=== PATIENT | female | born 1950 | race Caucasian/White ===

== ENCOUNTER 2020-12-05 05:34 | Emergency (ER) | payer OTHER, SELFPAY ==
[2020-12-05] VITALS (20 sets, daily range): BP systolic 145–186; BP diastolic 74–97; PULSE 70–83; RESP 11–20; TEMP 36.6; O2SAT 94–100
--- NOTE | ~2020-12-05 | CT_ITS ---
EXAMINATION: CTA brain carotid EXAM DATE: 12/05/2020 07:50 INDICATION: Headache/ Dizziness s/p neck manipulation. TECHNIQUE: Noncontrast head CT. Spiral CTA of the carotid arteries was performed with intravenous i njection 100 cc of Omnipaque 350. Axial, coronal, sagittal reformatted images reviewed. Additional r eformatted images created on dedicated 3-D workstation. NASCET comparable standard used to assess th e degree of arterial stenosis. Spiral CT angiogram cerebral arteries performed with the same intrave nous injection of contrast. Source images of the brain CTA transferred to dedicated workstation for 3 -D rotational image creation. Coronal, sagittal maximum intensity pixel images also reviewed. The d ose-length product (DLP) for this examination was 1649.38 mGy-cm. The exposure was tailored accordi ng to patient size, and iterative reconstruction (ASIR) was used as additional dose reduction techniq ue. Comparison is made to prior examination from 04/02/2007. FINDINGS: There is no carotid bulb arterial sclerosis or stenosis. The vertebral bodies are codominan t. Small amount of left carotid siphon arterial sclerosis without stenosis. There is no carotid or v ertebral basilar arterial dissection or fibromuscular dysplasia. There are no cerebral artery aneurys ms. There is symmetric cerebral artery arborization. The sagittal, transverse and sigmoid sinuses enh ance normally, no venous sinus thrombosis. Internal cerebral veins also enhance normally. There is no acute intraparenchymal hemorrhage. No evidence of intraparenchymal brain mass lesion. N o evidence of acute infarction. There is mild periventricular and subcortical hypodensity, nonspecifi c but probably related to small vessel ischemic disease. There is moderate prominence of the sulci and ventricles related to cerebral atrophy. There is intracranial carotid arteriosclerosis. Dural b ased right frontal calcification probably small meningioma. There is no mass effect or midline shift. There is no obstructive hydrocephalus suspected. There are no extra-axial collections. There are n o calvarial acute fractures. IMPRESSION: 1. No cervical arterial dissection or cerebral artery aneurysm. 2. Carotid bulb 0% stenosis bilaterally. Reviewed, dictated and finalized at location D. MBL[employer] PRESS OPERATOR
--- NOTE | 2020-12-05 05:52 | ECG_ITS ---
Measurements Intervals [place] Rate: 73 P: 36 GA: 157 QRS: -7 QRSD: 100 T: 67 QT: 386 QTc: 428 Interpretive Statements SINUS RHYTHM POSSIBLE LEFT ATRIAL ENLARGEMENT BORDERLINE ECG Electronically Signed On 12-05-2020 6:55:24 [place] [employer] by Roosevelt Daily D.O.
[2020-12-05] MEDS: MECLIZINE HCL 25 MG TABLET PO (06:53)
--- NOTE | 2020-12-05 07:23 | ED.HA ---
HPI - Headache General Chief Complaint: Headache <Frank Todd MD - Last Filed: 12/05/20 07:31> Stated Complaint: htn <Frank Todd MD - Last Filed: 12/05/20 07:31> Time Seen by Provider: 12/05/20 05:53 <Frank Todd MD - Last Filed: 12/05/20 07:31> History of Present Illness HPI Narrative: Patient is a 70-year-old female who presents ER with complaints of headache and dizziness. Started having headache yesterday and it was left-sided and throbbing in nature. It is since resolved and she is feeling better. She went to bed last night but then woke up this morning and she was having some rotational dizziness that made her feel disoriented. She reports she went to the chiropractor yesterday and had neck and low back manipulation performed. She then checked her blood pressure while having the dizziness and it was in the 180s systolic and then it went up into the 200s systolic. This gave her grave concern chaps come to the ER for further treatment evaluation. <Frank Todd MD - Last Filed: 12/05/20 07:31> Related Data Home Medications: Home Medications Medication Instructions Recorded Confirmed azelastine 137 mcg-fluticasone 50 1 spray NASAL .QD each 02/28/20 mcg spray,susp-NaCl 0.9% spray nasal loratadine 10 mg tablet 10 mg PO DAILY 02/28/20 <Frank Todd MD - Last Filed: 12/05/20 07:31> Allergies/Adverse Reactions: Allergies Allergy/AdvReac Type Severity Reaction Status Date / Time bacitracin Allergy Mild UNKNOWN Verified 09/22/20 10:36 neomycin Allergy Mild UNKNOWN Verified 09/22/20 10:36 polymyxin B Allergy Mild UNKNOWN Verified 09/22/20 10:36 cephalexin Allergy Unknown Verified 09/22/20 10:36 Cephalosporins Allergy Unknown Unknown Verified 09/22/20 10:36 ibuprofen Allergy Unknown Unknown Verified 09/22/20 10:36 levothyroxine sodium Allergy Unknown palpitation Verified 09/22/20 10:36 s. Penicillins Allergy Unknown Unknown Verified 09/22/20 10:36 Sulfa (Sulfonamide Allergy Unknown Unknown Verified 09/22/20 10:36 Antibiotics) CEPHALEXIN MONOHYDRATE Allergy Unknown Unknown Uncoded 09/22/20 10:36 <Frank Todd MD - Last Filed: 12/05/20 07:31> Review of Systems Review of Systems: All systems reviewed & are unremarkable except as noted in HPI and below <Frank Todd MD - Last Filed: 12/05/20 07:31> Constitutional: Constitutional: Denies chills, Denies fever(s) and Denies weakness <Frank Todd MD - Last Filed: 12/05/20 07:31> Eyes: Eyes: Denies change in vision and Denies photophobia <Frank Todd MD - Last Filed: 12/05/20 07:31> ENT: Reports dizziness, Denies nasal congestion and Denies sore throat <Frank Todd MD - Last Filed: 12/05/20 07:31> Cardiovascular: Cardiovascular: Denies chest pain, Denies rapid heart rate and Denies radiating jaw, neck or arm pain <Frank Todd MD - Last Filed: 12/05/20 07:31> Respiratory: Respiratory: Denies cough, Denies dyspnea and Denies wheezing <Frank Todd MD - Last Filed: 12/05/20 07:31> Neurologic: Reports dizziness, Reports headache(s), Denies focal weakness and Denies numbness <Frank Todd MD - Last Filed: 12/05/20 07:31> PMFSH Past Medical History Medical History: Medical History (Updated 12/05/20 @ 08:53 by Karen Hodge MD) Allergic rhinitis Blood glucose elevated FHx: colon cancer NOVA (generalized anxiety disorder) Hypothyroidism MDD (major depressive disorder) Mixed hyperlipidemia <Frank Todd MD - Last Filed: 12/05/20 07:31> Surgical History Surgical History: Surgical History (Updated 12/05/20 @ 07:23 by Frank Todd MD) No pertinent past surgical history <Frank Todd MD - Last Filed: 12/05/20 07:31> Family History Family History: Family History (System 09/22/20 @ 10:36 by Yolanda Hoskins) Mother Hypertension Sibling Carcinoma of colon <Frank Todd MD -
[2020-12-05 07:35] LABS: Estimated CRCL calculation 65 ml/min; Estimated Glomerular Filt Rate > 60
== END 2020-12-05 09:28 | disposition home or self-care (01) ==
PROVIDERS: Emergency Provider Emergency Medicine; PCP Family Medicine
DX: R42 Dizziness and giddiness (principal); E03.9 Hypothyroidism, unspecified; E78.2 Mixed hyperlipidemia; F32.9 Major depressive disorder, single episode, unspecified; F41.1 Generalized anxiety disorder; R94.31 Abnormal electrocardiogram [ECG] [EKG]
CPT/HCPCS: 36415; 70496; 70498; 82565; 93005; 99284; A9270; Q9967

== ENCOUNTER 2021-11-29 01:02 | Day surgery (SDC) | payer OTHER, SELFPAY ==
[2021-11-16 14:45] VITALS: BMI 31.3
--- NOTE | 2021-11-29 11:10 | WPDANESEPPF ---
Anes - Initial Pre Proc Eval Procedure: Operation Date: 11/29/21 13:00 Proposed Procedures p Esophagogastroduodenoscopy&Screen Colon - Sincere Ledesma MD Date/Time: 11/29/21 11:10 Surgeon: Sincere Ledesma MD Pre Op Diagnosis: GERD, abdominal pain, fam hx of colon ca Patient Data Age: 71 Gender: F Height: 1.68 m Weight: 86.6 kg Allergies Allergy/AdvReac Type Severity Reaction Status Date / Time bacitracin Allergy Mild UNKNOWN Verified 11/29/21 10:55 cephalexin Allergy Mild rash Verified 11/29/21 10:55 neomycin Allergy Mild UNKNOWN Verified 11/29/21 10:55 polymyxin B Allergy Mild UNKNOWN Verified 11/29/21 10:55 Cephalosporins Allergy Unknown Unknown Verified 11/29/21 10:55 ibuprofen Allergy Unknown Unknown Verified 11/29/21 10:55 levothyroxine sodium Allergy Unknown palpitation Verified 11/29/21 10:55 s. Penicillins Allergy Unknown Unknown Verified 11/29/21 10:55 Sulfa (Sulfonamide Allergy Unknown Unknown Verified 11/29/21 10:55 Antibiotics) Home Medications Medication Instructions Recorded Confirmed Type azelastine 137 mcg-fluticasone 50 1 spray NASAL .QD each 02/28/20 11/16/21 History mcg spray,susp-NaCl 0.9% spray nasal loratadine 10 mg tablet 10 mg PO DAILY PRN 02/28/20 11/16/21 History cimetidine 200 mg tablet 200 mg PO DAILY tablet 06/20/21 11/16/21 History alprazolam 0.5 mg tablet 0.5 mg PO DAILY PRN 11/14/21 11/16/21 History aspirin 81 mg tablet,delayed 81 mg PO DAILY 11/14/21 11/16/21 History release epinephrine [EpiPen] 0.3 mg IM ONCE PRN 11/16/21 11/16/21 History paroxetine HCl 20 mg PO DAILY 11/16/21 11/16/21 History Patient hx anesthesia problems: none Family hx anesthesia problems: none Results Review: All pre-operative results and documents have been reviewed as part of the pre-operative evaluation. [facility] Past Medical History Medical History Allergic rhinitis Blood glucose elevated FHx: colon cancer NOVA (generalized anxiety disorder) GERD (gastroesophageal reflux disease) Hypothyroidism MDD (major depressive disorder) Mixed hyperlipidemia Surgical History Surgical History No pertinent past surgical history Family History Family History Mother Hypertension Sibling Carcinoma of colon Social History Social History Social History: Smoking status: Never smoker Second hand tobacco smoke exposure: No Alcohol intake: current Drinks per week: 3 Substance use: never Substance use type: does not use Living arrangements: with family Gender identity (if verbalized by the patient): Female Sexual Orientation (if Verbalized by the Patient): Straight or Heterosexual Spiritual care concerns: No Anes - Eval Final PreProcedure Day of Procedure 11/29/21 11:10 Patient weight: obese Heart: regular rate and rhythm Lungs: clear to auscultation Airway: Mallampati scale class II Neurological: alert and oriented Last oral intake: >/= 8 hours ASA classification: III Emergent: no Anesthetic plan: proceed Anesthesia type and monitoring: general GIVS and standard monitoring Results Review: All pre-operative results and documents have been reviewed as part of the pre-operative evaluation. Informed Consent: The patient's anesthetic plan and its attendant risks and benefits were discussed with the patient/family/POA. Questions were solicited and answers provided to the satisfaction of the patient/family/POA.
[2021-11-29] MEDS: LACTATED RINGERS 1,000 ML 150 ML IV CONT (11:23)
--- NOTE | 2021-11-29 11:27 | WPDGICN ---
Assessment and Plan Assessment and plan (1) Obesity due to excess calories: Code(s): E66.09 - Other obesity due to excess calories Status: Acute (2) Screening for colon cancer: Code(s): Z12.11 - Encounter for screening for malignant neoplasm of colon Status: Acute Assessment and Plan: Patient presents today for colon cancer screening. She feels a fullness in the abdomen of uncertain nature. Quite anxious about this colonoscopy will be performed. (3) FHx: colon cancer: Code(s): Z80.0 - Family history of malignant neoplasm of digestive organs Status: Acute Assessment and Plan: Patient reports her half sister had colon cancer. Patient's last colonoscopy 2013 9 years ago. Plan is for surveillance colonoscopy at this time. (4) LUQ pain: Code(s): R10.12 - Left upper quadrant pain Status: Acute Assessment and Plan: Patient has left upper quadrant pain improving with Tagamet. Unable to take Prilosec because of apparent constipation with this medication. Plan is for EGD to assess more thoroughly. GI Consult Note Consult date/time: 11/29/21 11:27 HPI: Ya Fields is a 71 year old female Presents for both colonoscopy and EGD. Patient complains of epigastric and left upper quadrant pain. This improves on taking Tagamet but does not go away. She took Prilosec for 1 week but stopped because of constipation. Because of ongoing left upper quadrant pain an EGD is requested. Additionally patient complains of a vague fullness in the left flank. Also do suprapubic discomfort these are difficult for her to describe. She feels as though something is present. She is worried because a half sister had colon cancer. Her last colonoscopy 2012 was unremarkable. Review of Systems Review of Systems: All systems reviewed & are unremarkable except as noted in HPI and below PMFSH Past Medical History Medical History Allergic rhinitis Blood glucose elevated FHx: colon cancer NOVA (generalized anxiety disorder) GERD (gastroesophageal reflux disease) Hypothyroidism MDD (major depressive disorder) Mixed hyperlipidemia Surgical History Surgical History No pertinent past surgical history Family History Family History Mother Hypertension Sibling Carcinoma of colon Social History Social History Social History: Smoking status: Never smoker Second hand tobacco smoke exposure: No Alcohol intake: current Drinks per week: 3 Substance use: never Substance use type: does not use Living arrangements: with family Gender identity (if verbalized by the patient): Female Sexual Orientation (if Verbalized by the Patient): Straight or Heterosexual Spiritual care concerns: No Meds Home Medications and Allergies Home Medications Medication Instructions Recorded Confirmed Type azelastine 137 mcg-fluticasone 50 1 spray NASAL .QD each 02/28/20 11/16/21 History mcg spray,susp-NaCl 0.9% spray nasal loratadine 10 mg tablet 10 mg PO DAILY PRN 02/28/20 11/16/21 History cimetidine 200 mg tablet 200 mg PO DAILY tablet 06/20/21 11/16/21 History alprazolam 0.5 mg tablet 0.5 mg PO DAILY PRN 11/14/21 11/16/21 History aspirin 81 mg tablet,delayed 81 mg PO DAILY 11/14/21 11/16/21 History release epinephrine [EpiPen] 0.3 mg IM ONCE PRN 11/16/21 11/16/21 History paroxetine HCl 20 mg PO DAILY 11/16/21 11/16/21 History Allergies Allergy/AdvReac Type Severity Reaction Status Date / Time bacitracin Allergy Mild UNKNOWN Verified 11/29/21 10:55 cephalexin Allergy Mild rash Verified 11/29/21 10:55 neomycin Allergy Mild UNKNOWN Verified 11/29/21 10:55 polymyxin B Allergy Mild UNKNOWN Verified 11/29/21 10:55 Ce
--- NOTE | 2021-11-29 11:43 | SUR.OPER ---
EGD ended at 1139. Colonoscopy started at 1143.
[2021-11-29 12:00] VITALS: BP 124/72; PULSE 70; RESP 24; O2SAT 98
[2021-11-29 12:10] VITALS: BP 129/73; PULSE 65; RESP 21; O2SAT 97
[2021-11-29 12:20] VITALS: BP 137/82; PULSE 61; RESP 20; O2SAT 99
== END 2021-11-29 12:42 | disposition home or self-care (01) ==
PROVIDERS: PCP Family Medicine; Visit Provider Internal Medicine Gastroenterology
PROC: 0DJ08ZZ Inspection of Upper Intestinal Tract, Via Natural or Artificial Opening Endoscopic (ICD-10-PCS; CPT 43235; principal; 2021-11-29 13:00)
DX: Z12.11 Encounter for screening for malignant neoplasm of colon (principal); K64.8 Other hemorrhoids; R10.32 Left lower quadrant pain; R10.12 Left upper quadrant pain; Z80.0 Family history of malignant neoplasm of digestive organs; E78.2 Mixed hyperlipidemia; E03.9 Hypothyroidism, unspecified; K21.9 Gastro-esophageal reflux disease without esophagitis; F41.1 Generalized anxiety disorder; F32.9 Major depressive disorder, single episode, unspecified; E66.09 Other obesity due to excess calories; Z68.30 Body mass index [BMI] 30.0-30.9, adult; Z79.82 Long term (current) use of aspirin
CPT/HCPCS: 43239; G0105; 87081; J2704; J7120

== ENCOUNTER 2022-08-26 13:27 | Outpatient (CLI) | payer OTHER, SELFPAY ==
--- NOTE | ~2022-08-26 | MMUS_ITS ---
EXAMINATION: MM diagnostic andre RT w lorraine, US breast RT limited HISTORY: Pain, bruising and lump of the right breast after trauma TECHNIQUE: Craniocaudal, mediolateral, and mediolateral oblique 3-D tomosynthesis images of the right breast were performed and synthetic 2-D images were generated. CAD analysis was submitted and interp reted. High resolution limited right breast ultrasound was performed. COMPARISON: 05/15/2022, 12/15/2020 BREAST PARENCHYMAL COMPOSITION: There are scattered areas of fibroglandular density. FINDINGS: MAMMOGRAPHIC FINDINGS: No suspicious mass, calcification, or architectural distortion are identified to suggest malignancy. There has been no suspicious interval change. No mammographic correlate is identified for the reporte d palpable abnormality of the right breast. Scattered benign-appearing calcifications are present. ULTRASOUND: There is no evidence of focal abnormal solid or cystic mass in the vicinity of the reported palpable abnormality of concern in the right breast. IMPRESSION: 1. No specific mammographic or sonographic correlate is identified for the reported palpable abnormal ity of concern. Further evaluation at this time should be based on clinical assessment. Continued fol low-up physical examination is recommended. 2. Recommend routine screening mammography. BI-RADS Category 2: Benign finding(s). Reviewed, dictated and finalized at location A. IMPRESSION: 1. No specific mammographic or sonographic correlate is identified for the repo rted palpable abnormality of concern. Further evaluation at this time should be based on clinical assessment. Continued follow-up physical examination is jean-paul mmended. 2. Recommend routine screening mammography. BI-RADS Category 2: Benign finding(s).
== END 2022-08-26 13:28 | disposition home or self-care (01) ==
LOC: ANHIMG 13:34
PROVIDERS: PCP Family Medicine; Visit Provider Nurse Practitioner Gerontology
DX: N63.12 Unspecified lump in the right breast, upper inner quadrant (principal)
CPT/HCPCS: 76642; 77061; 77065; G0279

== ENCOUNTER 2022-11-21 14:00 | Outpatient (CLI) | payer OTHER, SELFPAY ==
--- NOTE | ~2022-11-21 | MMUS_ITS ---
EXAMINATION: MM diagnostic andre LT w lorraine, US breast LT limited HISTORY: Pain in the outer left breast TECHNIQUE: Craniocaudal, mediolateral, and mediolateral oblique 3-D tomosynthesis images of the left breast were performed and synthetic 2-D images were generated. CAD analysis was submitted and interpr eted. High resolution limited left breast ultrasound was performed. COMPARISON: 05/17/2022, 12/15/2020 BREAST PARENCHYMAL COMPOSITION: There are scattered areas of fibroglandular density. FINDINGS: MAMMOGRAPHIC FINDINGS: No suspicious mass, calcification, or architectural distortion are identified to suggest malignancy. There has been no suspicious interval change. No mammographic correlate is identified for the patient 's reported left breast pain. Scattered benign-appearing calcifications are present. ULTRASOUND: There is no evidence of focal abnormal solid or cystic mass in the vicinity of the patient's reported left breast pain. IMPRESSION: 1. No specific mammographic or sonographic correlate is identified for the patient's reported left br east pain. Further evaluation at this time should be based on clinical assessment. Continued follow-u p physical examination is recommended. 2. Routine screening mammography is recommended. BI-RADS Category 2: Benign finding(s). Reviewed, dictated and finalized at location A. ER AIRCRAFT IMPRESSION: 1. No specific mammographic or sonographic correlate is identified for the jorge ent's reported left breast pain. Further evaluation at this time should be base d on clinical assessment. Continued follow-up physical examination is recommend ed. 2. Routine screening mammography is recommended. BI-RADS Category 2: Benign finding(s).
== END 2022-11-21 14:01 | disposition home or self-care (01) ==
PROVIDERS: PCP Family Medicine; Visit Provider Nurse Practitioner Gerontology
DX: N64.4 Mastodynia (principal)
CPT/HCPCS: 76642; 77061; 77065; G0279

== ENCOUNTER 2023-08-01 03:07 | Emergency (ER) | payer OTHER, SELFPAY ==
--- NOTE | ~2023-08-01 | CT_ITS ---
EXAMINATION: CT abdomen pelvis wo con DATE: 08/01/2023 03:29 INDICATION: Left flank pain. Left lower quadrant abdominal pain. TECHNIQUE: Computed tomography (CT) of the abdomen and pelvis was performed without intravenous contr ast. Automated exposure control and iterative reconstruction technique were employed. The dose-length product was 632.87 mGy-cm. COMPARISON: None. FINDINGS: The visualized portions of lung bases demonstrate minimal atelectasis. No pleural effusion. The heart size is normal. No pericardial effusion. There is diffuse hepatic steatosis. The gallbladd er, spleen, pancreas, adrenal glands, and right kidney are normal. There are 2 stones in left kidney with the larger measuring 6 mm. There is asymmetric edema around left kidney. There is moderate left hydronephrosis and hydroureter. There is a 5 mm stone at left ureterovesicular junction. There are no dilated loops of bowel. The appendix is normal. There are no pathologically enlarged lymph nodes. Th ere is no free intraperitoneal fluid. There is thoracolumbar levoscoliosis. There is severe lumbar sp ondylosis. IMPRESSION: 1. 5 mm stone at left ureterovesicular junction with moderate left hydronephrosis and hydroureter. 2. Nonobstructing left kidney stones. Reviewed, dictated and finalized at location E. IMPRESSION: 1. 5 mm stone at left ureterovesicular junction with moderate left hydronephros is and hydroureter. 2. Nonobstructing left kidney stones.
[2023-08-01 03:08] VITALS: BP 174/86; PULSE 78; RESP 22; TEMP 37; O2SAT 98
[2023-08-01 03:23] LABS: Basophils Percent Auto 0.3 % (0.2-1.2); Hematocrit 43.9 % (37.0-47.0); Hemoglobin 14.9 g/dL (12.0-15.0); Immature Granulocyte Absolute 0.05 K/mm3 (0.00-0.031); Immature Granulocyte Percent A 0.4 % (0-0.5); Lymphocytes Absolute Auto 0.89 K/mm3 (0.9-3.2); Lymphocytes Percent Auto 7.6 % (18.3-44.2); Mean Corpuscular HGB Conc 33.9 g/dl (32-36); Mean Corpuscular Hemoglobin 31.7 pg (26-34); Mean Corpuscular Volume 93.4 fl (80-100); Mean Platelet Volume 9.9 fl (7.4-10.4); Monocytes Absolute Auto 0.6 K/mm3 (0.1-0.6); Monocytes Percent Auto 4.7 % (2.6-8.5); Neutrophils Absolute Auto 10.2 K/mm3 (1.3-6.7); Platelet Count Result 231 k/mm3 (150-375); Red Cell Distribution Width 12.8 % (11.5-14.5); White Blood Count 11.7 K/mm3 (4.5-10.0)
[2023-08-01 03:34] LABS: Alanine Aminotransferase 26 U/L (6-35); Albumin Level 4.7 g/dL (3.5-5.1); Alkaline Phosphatase 79 U/L (38-126); Anion Gap 7 mmol/L (8-16); Aspartate Amino Transferase 44 U/L (14-36); Bilirubin,Total 0.8 mg/dL (0.2-1.3); Blood Urea Nitrogen 22 mg/dL (7-17); Calcium 8.8 mg/dL (8.4-10.2); Carbon Dioxide 26 mmol/L (22-30); Chloride 100 mmol/L (98-107); Estimated CRCL calculation 48 ml/min; Estimated Glomerular Filt Rate 54; Glucose 157 mg/dL (65-110); Lipase 80 U/L (23-300); Potassium 3.9 mmol/L (3.4-5.0); Sodium 133 mmol/L (137-145)
[2023-08-01] MEDS: MORPHINE SULFATE (*CRX) 2 MG/ML INJ IV PUSH (03:40)
[2023-08-01] MEDS: ONDANSETRON INJ 4 MG/2 ML VIAL IV PUSH (03:40)
[2023-08-01] MEDS: SODIUM CHLORIDE 0.9% IV 1,000 ML 999 ML IV CONT (03:40)
[2023-08-01 03:57] LABS: Appearance Urine Cloudy (Clear); Bacteria Urine None Seen /hpf; Bilirubin Urine Negative (Negative); Color Urine Yellow (Yellow); Glucose Urine UA Negative (Negative); Ketones Urine 2+ mg/dL (Negative); Leukocyte Esterase Ur Negative LEU/UL (Negative); Nitrate Urine Negative (Negative); Non Pathogenic Casts 0-2; Protein Urine 1+ mg/dL (Negative); Specific Grav Ur 1.019 (1.001-1.035); Squamous Epithelial Cell Urine None seen /hpf (Few); Urobilinogen Urine 0.2 mg/dL (<2.0); WBC Urine 0-5 /hpf; pH Urine 7.5 (5.0-9.0)
--- NOTE | 2023-08-01 03:58 | ED.GENADULT ---
HPI - General Adult General Chief complaint: Urogenital-Female Stated complaint: flank pain Time Seen by Provider: 08/01/23 03:15 History of Present Illness HPI narrative: Patient's 70-year-old female presents the emergency department chief complaint of left-sided abdominal pain. Patient reports that she started having sharp pain in the left side of her abdomen today patient reports that is not improved by anything reports that she had some nausea related patient reports no vomiting patient states the pain does radiate to her groin patient reports no prior history of kidney stones reports no fever denies trauma patient reports that the symptoms or not improved by anything in the pain symptoms to do things on its own without specific event triggering it Related Data Home Medications Medication Instructions Recorded Confirmed azelastine 137 mcg-fluticasone 50 1 spray intranasal .QD 02/28/20 05/12/23 mcg spray,susp-NaCl 0.9% spray nasal loratadine 10 mg tablet (Claritin) 10 mg PO DAILY PRN Allergy Symptoms 02/28/20 05/12/23 aspirin 81 mg tablet,delayed 81 mg PO DAILY 11/14/21 05/12/23 release Allergies Allergy/AdvReac Type Severity Reaction Status Date / Time bacitracin Allergy Mild UNKNOWN Verified 08/01/23 03:15 cephalexin Allergy Mild rash Verified 08/01/23 03:15 neomycin Allergy Mild UNKNOWN Verified 08/01/23 03:15 polymyxin B Allergy Mild UNKNOWN Verified 08/01/23 03:15 Cephalosporins Allergy Unknown Unknown Verified 08/01/23 03:15 ibuprofen Allergy Unknown Unknown Verified 08/01/23 03:15 levothyroxine sodium Allergy Unknown palpitation Verified 08/01/23 03:15 s. Penicillins Allergy Unknown Unknown Verified 08/01/23 03:15 Sulfa (Sulfonamide Allergy Unknown Unknown Verified 08/01/23 03:15 Antibiotics) Review of Systems Review of Systems: A 10 system review of systems was completed on the patient and is negative except for what is stated in the HPI. Nursing and ancillary documentation was reviewed. [facility] Past Medical History Medical History Allergic rhinitis Blood glucose elevated FHx: colon cancer NOVA (generalized anxiety disorder) GERD (gastroesophageal reflux disease) Hypothyroidism MDD (major depressive disorder) Mixed hyperlipidemia Rectal benign neoplasm Surgical History Surgical History H/O section Hx of tonsillectomy No pertinent past surgical history Family History Family History Mother Hypertension Sibling Carcinoma of colon Social History Social History Social History: Smoking status: Never smoker Second hand tobacco smoke exposure: No Alcohol intake: current Drinks per week: 3 Substance use: never Substance use type: does not use Lack of Transportation: No Lack of Food: Never True Current Housing: I Have Housing Concerned About Future Housing: No Difficulty Paying Gas/Electric Bills: No Difficulty Paying for Meds: No Currently Unemployed: No Education: Associate Degree Difficulty w/ Childcare or Family Care: No Living arrangements: with family Occupation/Education: retired Gender identity (if verbalized by the patient): Female Sexual Orientation (if Verbalized by the Patient): Straight or Heterosexual Spiritual care concerns: No Exam Narrative: GENERAL: Well-appearing, well-nourished, and in no acute distress. HEAD: Normocephalic, atraumatic. EYES: PERRLA and EOMI. ENT: Nares clear, no rhinorrhea or epistaxis. Mucous membranes moist. NECK: Supple. CHEST: Clear to auscultation. No respiratory distress. HEART: Regular rate and rhythm. No murmur heard. Normal peripheral pulses. ABDOMEN: Soft, nontender, nondistended, normal active bowel sounds. EXTREMIT
[2023-08-01 04:03] LABS: Add Urine Microscopic? YES
[2023-08-01 04:16] VITALS: BP 183/90; PULSE 64; RESP 20; O2SAT 95
[2023-08-01 05:13] VITALS: BP 163/73; PULSE 82; RESP 19; O2SAT 96
[2023-08-01] MEDS: TAMSULOSIN HCL 0.4 MG CAPSULE PO (05:46)
[2023-08-01] MEDS: HYDROcodone/acetaminophen (*CRX) 5-325 MG TABLET 1 TAB PO (05:46)
== END 2023-08-01 05:55 | disposition home or self-care (01) ==
PROVIDERS: Emergency Provider Emergency Medicine; PCP Family Medicine
DX: N13.2 Hydronephrosis with renal and ureteral calculous obstruction (principal); E03.9 Hypothyroidism, unspecified; Z79.82 Long term (current) use of aspirin; E78.2 Mixed hyperlipidemia
CPT/HCPCS: 36415; 74176; 80053; 81001; 83690; 85025; 96361; 96374; 96375; 99284; A9270; J2270; J2405; J7030

== ENCOUNTER → 2023-09-15 10:38 | Outpatient (CLI) | payer OTHER, SELFPAY ==
--- NOTE | ~2023-09-15 | US_ITS ---
Renal-Bladder ultrasound Clinical History: Renal stones Technique: Real-time sonographic imaging of the kidneys and urinary bladder was performed. Findings: The right kidney measures 10.5 cm in length and the left kidney measures 11.4 cm. There is no hydronephrosis or renal calculus identified. Renal cortical echogenicity is within normal limits. No renal mass lesion is identified. The urinary bladder is largely collapsed, limiting evaluation. Impression: Unremarkable ultrasound of the kidneys. Collapsed urinary bladder limits evaluation. Reviewed, dictated and finalized at location M. ICAL EQUIPMENT SALES ENGINEER Impression: Unremarkable ultrasound of the kidneys. Collapsed urinary bladder limits evaluation.
== END ==
DX: Z87.442 Personal history of urinary calculi (principal)
CPT/HCPCS: 76770

== ENCOUNTER 2023-11-20 11:13 | Emergency (ER) | payer OTHER, SELFPAY ==
[2023-11-20 11:26] VITALS: BP 128/85; PULSE 80; RESP 16; TEMP 36.8; O2SAT 99
--- NOTE | 2023-11-20 11:36 | ED.URI ---
HPI - URI/Sore Throat General Chief Complaint: Upper Respiratory Infection Stated Complaint: SORE THROAT Time Seen by Provider: 11/20/23 11:28 Source: patient and RN notes reviewed Mode of arrival: ambulatory Limitations: no limitations History of Present Illness HPI Narrative: Patient presents today with a 4 day history of sore throat that has been worsening since onset. Denies any additional symptoms to include rhinorrhea, congestion, cough, fever. She has had a negative COVID home test. She has been gargling without much relief and currently rates her pain 8/10, which increases with swallowing. History of tonsillectomy. Related Data Home Medications Medication Instructions Recorded Confirmed azelastine 137 mcg-fluticasone 50 1 spray intranasal .QD 02/28/20 11/20/23 mcg spray,susp-NaCl 0.9% spray nasal loratadine 10 mg tablet (Claritin) 10 mg PO DAILY PRN Allergy Symptoms 02/28/20 11/20/23 aspirin 81 mg tablet,delayed 81 mg PO DAILY 11/14/21 11/20/23 release Allergies Allergy/AdvReac Type Severity Reaction Status Date / Time bacitracin Allergy Mild UNKNOWN Verified 11/20/23 11:21 cephalexin Allergy Mild rash Verified 11/20/23 11:21 neomycin Allergy Mild UNKNOWN Verified 11/20/23 11:21 polymyxin B Allergy Mild UNKNOWN Verified 11/20/23 11:21 Cephalosporins Allergy Unknown Unknown Verified 11/20/23 11:21 ibuprofen Allergy Unknown Unknown Verified 11/20/23 11:21 levothyroxine sodium Allergy Unknown palpitation Verified 11/20/23 11:21 s. Penicillins Allergy Unknown Unknown Verified 11/20/23 11:21 Sulfa (Sulfonamide Allergy Unknown Unknown Verified 11/20/23 11:21 Antibiotics) Review of Systems Review of Systems: CONSTITUTIONAL: Denies body aches, fever, chills, or sweats. EYES: Denies visual changes, redness, or discharge. ENT: Denies rhinorrhea, congestion, or otalgia.+ sore throat CARDIOVASCULAR: Denies chest pain, palpitations, or edema. RESPIRATORY: Denies cough or dyspnea. GASTROINTESTINAL: Denies abdominal pain, nausea, vomiting, or diarrhea. GENITOURINARY: Denies dysuria or hematuria. SKIN: Denies rash, itching, or wounds. MUSCULOSKELETAL: Denies back pain, joint pain, or myalgia. NEUROLOGIC: Denies headache, numbness, tingling, or weakness. PSYCH: Denies depression or anxiety. [facility] Past Medical History Medical History Allergic rhinitis Blood glucose elevated FHx: colon cancer NOVA (generalized anxiety disorder) GERD (gastroesophageal reflux disease) Hypothyroidism MDD (major depressive disorder) Mixed hyperlipidemia Rectal benign neoplasm Surgical History Surgical History H/O section Hx of tonsillectomy No pertinent past surgical history Family History Family History Mother Hypertension Sibling Carcinoma of colon Social History Social History Social History: Smoking status: Never smoker Second hand tobacco smoke exposure: No Alcohol intake: current Drinks per week: 3 Substance use: never Substance use type: does not use Lack of Transportation: No Lack of Food: Never True Current Housing: I Have Housing Concerned About Future Housing: No Difficulty Paying Gas/Electric Bills: No Difficulty Paying for Meds: No Currently Unemployed: No Education: Associate Degree Difficulty w/ Childcare or Family Care: No Living arrangements: with family Occupation/Education: retired Gender identity (if verbalized by the patient): Female Sexual Orientation (if Verbalized by the Patient): Straight or Heterosexual Spiritual care concerns: No Comments At time of signature, I have reviewed and agree with nursing past medical, surgical, social and family history unless otherwise noted. Ple
== END 2023-11-20 11:54 | disposition home or self-care (01) ==
PROVIDERS: Emergency Provider Nurse Practitioner; PCP Family Medicine
DX: J02.9 Acute pharyngitis, unspecified (principal); K21.9 Gastro-esophageal reflux disease without esophagitis; E03.9 Hypothyroidism, unspecified; E78.2 Mixed hyperlipidemia; Z79.82 Long term (current) use of aspirin
CPT/HCPCS: 87081; 87880; 99213; G0463

== ENCOUNTER 2024-03-15 12:49 | Outpatient (CLI) | payer OTHER, SELFPAY ==
--- NOTE | ~2024-03-15 | XR_ITS ---
EXAMINATION: XR abdomen/kub 1V DATE: 03/15/2024 13:14 INDICATION: Personal history of kidney stones. TECHNIQUE: A supine view of the abdomen on 2 radiographs was obtained. COMPARISON: CT abdomen and pelvis 03/15/2024 FINDINGS: There are no dilated loops of bowel. There are phleboliths in the pelvis. There is a 5 mm s tone in left kidney. IMPRESSION: 1. 5 mm stone in left kidney. Reviewed, dictated and finalized at location A.
--- NOTE | ~2024-03-15 | CT_ITS ---
Non-contrast CT scan of the Abdomen and Pelvis Clinical indication: Kidney stones Technique: 2.5 mm axial scans were obtained through the abdomen and pelvis without intravenous or or al contrast. Dose reduction technique was used on this scan by utilizing automated exposure control a nd iterative reconstruction technique. The dose-length product (DLP) was 579.83 mGy-cm. COMPARISON: 08/01/2023 Findings: Images through the lung bases reveal no abnormalities. 6 mm nonobstructing left renal stone present. No right renal stone present. No ureteral stone or hydr onephrosis on either side. The liver, spleen, pancreas, gallbladder, and adrenals appear normal. There is no aortic aneurysm. There is no evidence of bowel obstruction. Images through the pelvis were performed. There is no evidence of ascites or lymphadenopathy. Urinary bladder unremarkable. No pelvic mass seen. Impression: 6 mm nonobstructing left renal stone. Reviewed, dictated and finalized at [facility]. Impression: 6 mm nonobstructing left renal stone.
== END 2024-03-15 12:50 ==
PROVIDERS: PCP Nurse Practitioner Family; Visit Provider Nurse Practitioner Family
DX: N20.0 Calculus of kidney (principal)
CPT/HCPCS: 74018; 74176

== ENCOUNTER 2024-06-07 14:05 | Outpatient (CLI) | payer OTHER, SELFPAY ==
--- NOTE | ~2024-06-07 | MM_ITS ---
EXAMINATION: MM screening [facility] BI w lorraine HISTORY: Screening TECHNIQUE: Craniocaudal and mediolateral oblique 3-D tomosynthesis images were obtained and synthetic 2-D images were generated. CAD analysis was submitted and interpreted. COMPARISON: Comparison to multiple prior studies sequentially, with oldest reviewed study dated 05/17. BREAST PARENCHYMAL COMPOSITION: Not dense: There are scattered areas of fibroglandular density. FINDINGS: No significant change to bilateral calcifications and breast asymmetries compared with prio r examinations allowing for differences of technique. There is no evidence of suspicious mass, calcif ication, or architectural distortion to suggest malignancy in either breast. There has been no suspic ious interval change. IMPRESSION: 1. No mammographic evidence of malignancy. 2. Recommend routine screening mammography in one year. BI-RADS Category 2: Benign finding(s). Reviewed, dictated and finalized at location B.
== END 2024-06-07 14:06 | disposition home or self-care (01) ==
PROVIDERS: PCP Family Medicine; Visit Provider Family Medicine
DX: Z12.31 Encounter for screening mammogram for malignant neoplasm of breast (principal)
CPT/HCPCS: 77063; 77067

== ENCOUNTER 2024-06-16 10:45 | Outpatient (RCR) | payer OTHER, SELFPAY ==
[2024-05-18 08:21] VITALS: BMI 29.9
[2024-06-16 11:00] VITALS: BMI 28.6
== END 2024-08-02 10:34 | disposition home or self-care (01) ==
LOC: ANHDMC 10:45
PROVIDERS: PCP Family Medicine; Visit Provider Physician Assistant
DX: E11.9 Type 2 diabetes mellitus without complications (principal); Z71.3 Dietary counseling and surveillance
CPT/HCPCS: 97802; 97803